=== PATIENT | male | born 1970 | race African-American/Black ===

== ENCOUNTER 2021-11-28 21:44 | Emergency (ER) | payer MEDICAID ==
[~2021-11-28] VITALS: Ht 182.9 cm; Wt 120.0 kg
[2021-11-29 06:23] VITALS: BP 140/64
== END 2021-11-29 06:24 | disposition home or self-care (01) ==
LOC: ER 21:44
DX: F10.229 Alcohol dependence with intoxication, unspecified (principal); Y90.0 Blood alcohol level of less than 20 mg/100 ml
CPT/HCPCS: 99283